=== PATIENT | female | born 1985 ===

== ENCOUNTER → 2019-08-08 16:48 | Outpatient (CLI) | payer OTHER | END | disposition home or self-care (01) | LOC: D.LABREF 16:48 | PROVIDERS: ATTEND Legal Medicine | DX: I10 Essential (primary) hypertension (principal); E83.110 Hereditary hemochromatosis ==

== ENCOUNTER → 2019-08-08 16:48 | Outpatient (CLI) | payer SELFPAY ==
[2019-08-08 17:26] LABS: HEMATOCRIT 47.1 % (36.0-48.0); HEMOGLOBIN 15.2 g/dL (12-16); MCH 28.3 pg (26.0-34.0); MCHC 32.3 g/dL (31.0-37.0); MCV 87.7 fL (80.0-100.0); MEAN PLATELET VOLUME 11.1 fL (7.4-10.4); PLATELET COUNT 316 10x3/uL (130-400); RBC 5.37 10x6/uL (4.00-5.40); RDW 13.9 % (11.5-14.5); WBC 11.5 10x3/uL (4.8-10.8)
[2019-08-08 18:16] LABS: LYMPHOCYTES 23 % (15-50); NEUTROPHILS 77 % (40-80); PLATELET ESTIMATE NORMAL
== END | disposition home or self-care (01) ==
LOC: D.LABREF 16:48
PROVIDERS: ATTEND Legal Medicine
DX: I10 Essential (primary) hypertension (principal); E83.110 Hereditary hemochromatosis

== ENCOUNTER → 2019-11-11 07:58 | Outpatient (CLI) | payer OTHER ==
[~2019-11-11] VITALS: Ht 162.6 cm; Wt 154.2 kg
[2019-11-11 09:27] VITALS: Ht 162.6 cm; Wt 154.2 kg
== END | disposition home or self-care (01) ==
LOC: D.FANS 07:58
PROVIDERS: ATTEND Nurse Practitioner
DX: E11.65 Type 2 diabetes mellitus with hyperglycemia (principal)